=== PATIENT | male | born 1990 | race African-American/Black ===

== ENCOUNTER 2019-04-25 18:43 | Emergency (ER) | payer OTHER ==
[~2019-04-25] VITALS: Ht 175.3 cm; Wt 125.4 kg
[2019-04-25] MEDS ORDERED: EPINEPHrine 1:10,000 [1 MG/10 ML] SYRINGE IVP ONE ×3 (18:45)
[2019-04-25] MEDS ORDERED: AMIODARONE HCL 50 MG/ML 3 ML VIAL IV ONE ×2 (18:45)
[2019-04-25] MEDS ORDERED: SODIUM BICARBONATE [ADULT] 8.4% 50 MEQ/50 ML SYRINGE IVP ONE ×2 (18:45)
[2019-04-25] MEDS ORDERED: 0.9% SODIUM CHLORIDE 10 ML SYRINGE IVP ONE ×2 (18:45)
[2019-04-25] MEDS ORDERED: ALBUTEROL SULFATE 5 MG/ML 20 ML NEB SOLN [BULK] NEB ONE ×2 (18:55→19:20)
[2019-04-25] MEDS ORDERED: ALBUTEROL SULFATE 2.5 MG/0.5 ML NEB SOLUTION NEB ONE ×3 (18:56→19:19)
[2019-04-25 19:12] LABS: GLUCOSE,POINT OF CARE 239 MG/DL (70-110)
[2019-04-25] MEDS ORDERED: WATER FOR INJECTION STERILE IV ONE ×2 (19:15→19:30)
[2019-04-25] MEDS ORDERED: ESMOLOL HCL 10 MG/ML 10 ML VIAL IVP ONE (19:15)
[2019-04-25] MEDS ORDERED: ALTEPLASE IV ONE ×2 (19:15→19:30)
[2019-04-25 19:19] LABS: HEMATOCRIT 27.4 % (41-53); HEMOGLOBIN 9.7 g/dL (13.5-17.5); MEAN CORPUSCULAR HEMOGLOBIN 33.5 pg (26.0-34.0); MEAN CORPUSCULAR HGB CONC 35.3 G/dL (31.0-37.0); MEAN CORPUSCULAR VOLUME 95 fL (80-100); RED BLOOD CELL COUNT(AUTO) 2.89 MIL/uL (4.50-5.90); RED CELL DISTRIBUTION WIDTH 16.3 % (11.5-14.5)
[2019-04-25 19:31] LABS: INR 1.4 (0.9-1.1); PROTHROMBIN TIME 13.9 SEC (9.4-11.6)
[2019-04-25 19:43] LABS: B-TYPE NATRIURETIC PEPTIDE 15 pg/mL (0-100)
[2019-04-25 19:54] LABS: ALANINE AMINOTRANSFERASE 237 U/L (12-78); ALBUMIN 2.6 g/dL (3.4-5.0); ALKALINE PHOSPHATASE 122 U/L (46-116); ASPARTATE AMINOTRANSFERASE 198 U/L (15-37); BILIRUBIN,TOTAL 1.1 mg/dL (0.1-1.0); CALCIUM, TOTAL 8.3 mg/dL (8.8-10.5); CHLORIDE 125 mmol/L (98-107); CREATINE KINASE, TOTAL ONLY 152 U/L (39-308); CREATININE 1.04 mg/dL (0.60-1.30); GLOMERULAR FILTR. RATE CALC > 60 mL/min (>60); GLUCOSE,RANDOM 293 mg/dL (70-110); TOTAL PROTEIN, SERUM 5.8 g/dL (6.4-8.2); UREA NITROGEN, BLOOD 10 mg/dL (7-18)
[2019-04-25 20:00] LABS: SODIUM SERUM 193 mmol/L (136-145)
[2019-04-25 20:01] LABS: POTASSIUM 8.1 mmol/L (3.5-5.1)
[2019-04-25 20:16] LABS: ANION GAP 5 mmol/L (8-16); CARBON DIOXIDE 63 mmol/L (22-29)
[2019-04-25 20:47] VITALS: BP 111/61
[2019-04-25 20:47] LABS: BAND NEUTROPHILS % (MANUAL) 3 % (0-5); CORRECTED WHITE BLOOD COUNT 17.1 K/uL (4.5-11.0); LYMPHOCYTES % (MANUAL) 38 % (22-44); MONOCYTES % (MANUAL) 12 % (2-9); REACTIVE LYMPHOCYTES 1 % (0-0); SEGMENTED NEUTROPHILS % 46 % (40-70)
[2019-04-25 20:58] LABS: PLATELET COUNT (AUTO) 110 K/uL (150-450)
== END 2019-04-25 23:30 | disposition expired ==
LOC: EDUNIT# 18:43 → EMS 18:44
DX: I46.9 Cardiac arrest, cause unspecified (principal); J45.909 Unspecified asthma, uncomplicated
CPT/HCPCS: 31500; 36415; 37195; 80053; 82550; 82962; 83880; 84484; 85025; 85610; 85730; 92950; 94640; 99285; J0171; J0282; J2997; J3490 ×2; X7700